=== PATIENT | female | born 1990 | race Caucasian/White ===

== ENCOUNTER 2018-05-27 16:08 | Inpatient (IN) | payer BC, OTHER ==
[2018-05-29] MEDS: LACTATED RINGERS 1,000 ML IV SCH ×3 (06:06→14:31)
[2018-05-29] MEDS ORDERED: LIDOCAINE 1% (PF) 10 MG/ML (30 ML SDV) SQ PRN (06:07)
[2018-05-29] MEDS ORDERED: OXYTOCIN 10 UNIT/ML 1 ML VIAL IM PRN (06:07)
[2018-05-29] MEDS ORDERED: TERBUTALINE 1 MG/ML VIAL SQ PRN (06:07)
[2018-05-29] MEDS ORDERED: CARBOPROST TROMETHAMINE 250 MCG/ML 1 ML AMP IM PRN (06:07)
[2018-05-29] MEDS ORDERED: METHYLERGONOVINE 0.2 MG/ML 1 ML AMP IM PRN (06:07)
[2018-05-29] MEDS ORDERED: OXYTOCIN 20 UNITS/1000 ML NS 1,000 ML IV SCH ×2 (06:15→17:00)
[2018-05-29 06:17] LABS: Basophils % (A) 0 %; Eosinophils # (A) 0.1 k/uL (0-0.7); Eosinophils % (A) 1 %; HCT 37.7 % (34.0-46.0); HGB 12.4 gm/dL (11.4-16.0); Lymphocytes # (A) 2.3 k/uL (1.0-4.8); Lymphocytes % (A) 15 %; MCH 28.6 pg (25.0-35.0); MCHC 32.9 g/dL (31.0-37.0); MCV 86.9 fL (80.0-100.0); Monocytes # (A) 0.8 k/uL (0-1.0); Monocytes % (A) 5 %; Neutrophils # (A) 12.6 k/uL (1.3-7.7); Neutrophils % (A) 78 %; Platelet Count 435 k/uL (150-450); RBC 4.33 m/uL (3.80-5.40); RDW 13.7 % (11.5-15.5)
[2018-05-29] MEDS ORDERED: ROPIVACAINE 5MG/ML 20ML VIAL ONE (08:06)
[2018-05-29] MEDS ORDERED: SODIUM CHLORIDE 0.9% 100 ML BAG ONE (08:06)
[2018-05-29] MEDS ORDERED: fentaNYL (PF) 50 MCG/ML 5 ML AMP ONE (08:06)
[2018-05-29] MEDS ORDERED: diphenhydrAMINE 50 MG/ML 1 ML VIAL IVP PRN ×2 (16:59)
[2018-05-29] MEDS ORDERED: diphenhydrAMINE 50 MG CAP PO PRN (16:59)
[2018-05-29] MEDS ORDERED: WITCH HAZEL 1 EACH MED..PAD TOPICAL PRN (16:59)
[2018-05-29] MEDS ORDERED: ZOLPIDEM 5 MG TAB PO PRN (16:59)
[2018-05-29] MEDS ORDERED: LANOLIN CREAM 5 GM TUBE TOPICAL PRN (16:59)
[2018-05-29] MEDS ORDERED: HYDROCORTISONE 2.5% RECTAL CREAM 30 GM TUBE RECTAL PRN (16:59)
[2018-05-29] MEDS ORDERED: ACETAMINOPHEN TAB 325 MG TAB PO PRN (16:59)
[2018-05-29] MEDS ORDERED: BENZOCAINE/MENTHOL SPRAY 1 GM/SPRAY AEROSOL TOPICAL PRN (16:59)
[2018-05-29] MEDS ORDERED: SIMETHICONE 80 MG CHEWABLE PO PRN (16:59)
[2018-05-29] MEDS ORDERED: HYDROcodone/APAP 5-325MG 1 EACH TAB PO PRN (16:59)
[2018-05-29] MEDS ORDERED: diphenhydrAMINE 25 MG CAP PO PRN (16:59)
--- NOTE | 2018-05-29 17:03 | P.HPOB ---
History of Present Illness H&P Date: 05/29/18 Chief Complaint: induction of labor 27-year-old presents at 40 weeks for induction of labor. Her cervix is 2 cm dilated, 90 percent effaced, and -2 station. She is kareem irregularly. heart tones 120-125 with moderate variability and reactive. Review of Systems All systems: negative Constitutional: Denies chills, Denies fever Eyes: denies blurred vision, denies pain Ears, nose, mouth and throat: Denies headache, Denies sore throat Cardiovascular: Denies chest pain, Denies shortness of breath Respiratory: Denies cough Gastrointestinal: Denies abdominal pain, Denies diarrhea, Denies nausea, Denies vomiting Genitourinary: Denies dysuria, Denies hematuria Musculoskeletal: Denies myalgias Integumentary: Denies pruritus, Denies rash Neurological: Denies numbness, Denies weakness Psychiatric: Denies anxiety, Denies depression Endocrine: Denies fatigue, Denies weight change Past Medical History Past Medical History: No Reported History Additional Past Medical History / Comment(s): Obstetric history: This is her first and she's had care with me since 12 weeks gestation. Blood type is O+, antibodies negative, rubella immune, RPR nonreactive, hepatitis B negative, HIV nonreactive, toxoplasmosis negative. Abnormal 1 hour , normal 3 hour glucose tolerance test. GBS negative. Normal anatomy ultrasound. History of Any Multi-Drug Resistant Organisms: None Reported Past Surgical History: No Surgical Hx Reported Past Anesthesia/Blood Transfusion Reactions: No Reported Reaction Past Psychological History: No Psychological Hx Reported Smoking Status: Never smoker Past Alcohol Use History: None Reported Past Drug Use History: None Reported - Past Family History Father Family Medical History: CVA/TIA, Hypertension Medications and Allergies Home Medications Medication Instructions Recorded Confirmed Type No Known Home Medications 05/29/18 05/29/18 History Allergies Allergy/AdvReac Type Severity Reaction Status Date / Time No Known Allergies Allergy Verified 05/29/18 06:06 Exam Osteopathic Statement: *. No significant issues noted on an osteopathic structural exam other than those noted in the History and Physical/Consult. Vital Signs Temp Pulse Resp BP Pulse Ox 05/29/18 06:11 96.7 F L 94 16 136/90 99 Intake and Output 05/29/18 05/29/18 05/29/18 06:59 14:59 22:59 Intake Total 1500 Balance 1500 Intake: IV 1500 Lactated Ringers 1,000 ml 1500 @ 125 mls/hr IV .Q8H [facility] Rx#:[id number] Other: Weight 90.718 kg Heart: Regular rate and rhythm Lungs: Clear to auscultation bilaterally Abdomen: Soft, nontender Extremities: Negative Homans sign Results Result Diagrams: 05/29/18 06:05 Abnormal Lab Results - Last 24 Hours (Table) 05/29/18 Range/Units 06:05 WBC 16.0 H (3.8-10.6) k/uL Neutrophils # 12.6 H (1.3-7.7) k/uL Assessment and Plan (1) Normal labor Current Visit: Yes Status: Acute Code(s): O80 - ENCOUNTER FOR FULL-TERM UNCOMPLICATED DELIVERY; Z37.9 - OUTCOME OF DELIVERY, UNSPECIFIED SNOMED Code(s ): 60337157 Plan: 1. Admit to family place 2. Induction of labor with amniotomy and Pitocin 3. Anticipate normal vaginal delivery
--- NOTE | 2018-05-29 17:05 | P.PROBDLV ---
Vaginal Delivery Note - . Vaginal Delivery Note: 27-year-old presented at 40 weeks for induction of labor. Her cervix is 2 cm dilated, 90% effaced, and -2 station. She is kareem irregularly. heart tones 100 2225 with moderate variability and reactive. Amniotomy was performed at 6:40 AM clear fluid noted. Pitocin was also started. When she began feeling very uncomfortable she did get an epidural. She slowly progressed throughout the day and her cervix was completely dilated at 1525. When she felt the urge to push she did begin pushing and delivered a viable male infant over intact perineum under epidural anesthesia at 1629. Head delivered OA, anterior shoulder delivered gentle downward guidance followed by posterior shoulder and rest of body. Nose and mouth bulb suctioned, cord clamped and cut, infant placed on mother's abdomen. Apgars 8, 9, weight 6 lbs. 6 oz. Placenta delivered spontaneously, intact with three-vessel cord at 1632. Vagina, cervix, perineum inspected. Second-degree vaginal laceration was repaired with 2-0 Vicryl. Estimated blood loss 300 mL. Mother and baby in stable condition.
[2018-05-29 18:48] VITALS: RESP 16
[2018-05-29] MEDS: IBUPROFEN 600 MG TAB PO PRN (19:17)
[2018-05-29] MEDS: SENNOSIDES-DOCUSATE SODIUM 1 EACH TAB PO SCH (19:18)
[2018-05-30] MEDS: IBUPROFEN 600 MG TAB PO PRN (08:10)
[2018-05-30] MEDS: SENNOSIDES-DOCUSATE SODIUM 1 EACH TAB PO SCH (08:11)
--- NOTE | 2018-05-30 09:15 | P.DS ---
Providers Date of admission: 05/29/18 05:58 Expected date of discharge: 05/30/18 Attending physician: Virginia Marcelino Primary care physician: Meghan Garcia - Discharge Diagnosis(es) (1) Normal labor Current Visit: Yes Status: Resolved (2) Normal vaginal delivery Current Visit: Yes Status: Acute Hospital Course: Patient presented for induction of labor. She underwent a normal vaginal delivery. Her course was uncomplicated. She'll be discharged home day #1 in stable condition to follow-up with me in 6 weeks. Plan - Discharge Summary New Discharge Prescriptions: New Ibuprofen [Motrin] 600 mg PO Q6HR PRN #30 tab PRN Reason: Mild Pain Or Fever >= 100.5 Discharge Medication List Ibuprofen [Motrin] 600 mg PO Q6HR PRN #30 tab 05/30/18 [Rx] Follow up Appointment(s)/Referral(s): Virginia Marcelino DO [Doctor of Osteopathic Medicine] - 6 Weeks Discharge Disposition: HOME SELF-CARE
[2018-05-30 16:45] VITALS: BP 130/85; PULSE 95; TEMP 98.6
== END 2018-05-30 17:45 | disposition home or self-care (01) | DRG 775 ==
LOC: 4FBP 05-29 05:58
PROVIDERS: ADMIT Obstetrics & Gynecology; ATTEND Obstetrics & Gynecology
PROC: 10E0XZZ Delivery of Products of Conception, External Approach (ICD-10-PCS; principal; 2018-05-29)
PROC: 0KQM0ZZ Repair Perineum Muscle, Open Approach (ICD-10-PCS; 2018-05-29)
PROC: 00HU33Z Insertion of Infusion Device into Spinal Canal, Percutaneous Approach (ICD-10-PCS; 2018-05-29)
PROC: 3E0R3BZ Introduction of Anesthetic Agent into Spinal Canal, Percutaneous Approach (ICD-10-PCS; 2018-05-29)
PROC: 3E033VJ Introduction of Other Hormone into Peripheral Vein, Percutaneous Approach (ICD-10-PCS; 2018-05-29)
PROC: 10907ZC Drainage of Amniotic Fluid, Therapeutic from Products of Conception, Via Natural or Artificial Opening (ICD-10-PCS; 2018-05-29)
DX: O70.1 Second degree perineal laceration during delivery (principal); Z37.0 Single live birth; Z3A.40 40 weeks gestation of pregnancy; Z82.49 Family history of ischemic heart disease and other diseases of the circulatory system; Z82.3 Family history of stroke
CPT/HCPCS: 85025

== ENCOUNTER → 2019-04-29 | Outpatient (CLI) | payer BC ==
--- NOTE | 2019-04-29 17:32 | CT ---
EXAMINATION TYPE: CT sinus wo con DATE OF EXAM: 04/29/2019 COMPARISON: None HISTORY: Difficulty breathing out of right nostril CT DLP: 587.5 mGycm CONTRAST: None The paranasal sinuses are examined in the axial plane at 2 mm thick sections. Reconstructed images i n the coronal plane were obtained. There is dental amalgam scatter artifact Retention cysts are within the right maxillary sinus. Small retention cysts within the left maxillary sinus. Mild mucosal thickening is through ethmoid air cells. Right sphenoid sinus contains mucosal thickening The frontal sinuses are clear. The septum is evaluated. There is septal deviation to the right. Nasal passages are clear. The ostiomeatal units are patent. IMPRESSIONS: 1. Post thickening within maxillary sinuses and scattered ethmoid air cells. 2. Right septal deviation
== END | disposition home or self-care (01) ==
LOC: RADCTMAIN 13:18
PROVIDERS: ATTEND Otolaryngology
DX: J34.89 Other specified disorders of nose and nasal sinuses (principal); J34.2 Deviated nasal septum; J32.9 Chronic sinusitis, unspecified
CPT/HCPCS: 70486

== ENCOUNTER 2019-06-16 06:50 | Day surgery (SDC) | payer BC ==
[2019-06-10 15:25] VITALS: BMI 37.0
[~2019-06-16 06:50] MED LIST: DEXAMETHASONE SOD PHOSPHATE 10 MG/ML 1 ML VIAL IV ONE; DEXAMETHASONE SOD PHOSPHATE 4 MG/ML 1 ML VIAL IV ONE; FAMOTIDINE 20 MG/2 ML VIAL IV ONE; HYDROmorphone 0.5 MG/0.5 ML SYRINGE IVP PRN; LACTATED RINGERS 1,000 ML IV SCH; LIDOCAINE 1% 20 ML VIAL (10MG/ML) FOR IV START INTRADERMA PRN; MIDAZOLAM 2 MG/2 ML VIAL IV PRN; ONDANSETRON 4 MG/2 ML VIAL IVP ONE; SCOPOLAMINE 1.5MG/72HR PATCH TRANSDERM ONE
[2019-06-16 07:20] VITALS: RESP 16
[2019-06-16] MEDS: OXYMETAZOLINE 0.05% NASL SPRAY 1 SPRAY BOTTLE NASAL ONE ×5 (07:22→07:39)
[2019-06-16] MEDS ORDERED: fentaNYL (PF) 50 MCG/ML 2 ML AMP ONE (08:11)
[2019-06-16] MEDS ORDERED: GLYCOPYRROLATE 0.2 MG/ML 2 ML VIAL ONE (08:11)
[2019-06-16] MEDS ORDERED: PROPOFOL 10 MG/ML 20 ML VIAL IV ONE (08:11)
[2019-06-16] MEDS ORDERED: ROCURONIUM BROMIDE 10 MG/ML 10 ML VIAL IV ONE (08:11)
[2019-06-16] MEDS ORDERED: MIDAZOLAM 2 MG/2 ML VIAL ONE (08:11)
[2019-06-16] MEDS ORDERED: LIDOCAINE 1% INJ 10MG/ML (20 ML MDV) ONE (08:11)
[2019-06-16] MEDS ORDERED: DEXAMETHASONE SOD PHOS (MDV) 100 MG/10 ML VIAL ONE (08:11)
[2019-06-16] MEDS ORDERED: NEOSTIGMINE 1 MG/ML 10 ML VIAL ONE (08:11)
[2019-06-16] MEDS ORDERED: SUCCINYLCHOLINE CHLORIDE 100 MG/5 ML SYR IV ONE (08:11)
[2019-06-16] MEDS ORDERED: LIDOCAINE 1%-EPI 1:100,000 20 ML VIAL SUBMUCOSAL ONE ×2 (08:45)
[2019-06-16] MEDS ORDERED: BACITRACIN OINT 1 EACH PACKET TOPICAL ONE (08:45)
--- NOTE | 2019-06-16 09:28 | P.OP ---
Date of Procedure: 06/16/19 Preoperative Diagnosis: Deviated nasal septum Inferior turbinate hypertrophy Chronic sinusitis Postoperative Diagnosis: Same Procedure(s) Performed: Septoplasty Outfractured and submucous resection inferior turbinates Bilateral endoscopic sinus surgery including bilateral maxillary antrostomy with removal of tissue from the maxillary sinuses, right anterior and posterior ethmoidectomy, right sphenoidotomy including balloon sinus plasty Anesthesia: STEPHANIE Surgeon: Jon Preciado Estimated Blood Loss (ml): 10 Pathology: other (Nasal septal bone and cartilage and sinus contents) Condition: stable Disposition: PACU Indications for Procedure: This 28-year-old white female whose had difficulties with chronic and recurrent sinusitis as well as chronic nasal airway obstruction especially on the right Operative Findings: Septum deviated to the right, inferior turbinate hypertrophy bilateral, bilateral maxillary sinus polyps and mucosal thickening throughout the anterior posterior ethmoid sinuses on the right as well as mild inflammation of the right sphenoid sinus Description of Procedure: The patient was brought in the operative suite and placed in a supine position. Patient underwent induction of general anesthesia with oral endotracheal intubation without difficulty. The patient was prepped and draped in usual aseptic fashion. The orbits in the operating field for monitoring times the case and the computed tomography scan was on the computer screen for review throughout the case also. 1% lidocaine with 1 100,000 epinephrine was infused submucosally and bilateral nasal septum other partial submucous resection inferior turbinates with Coblation wand ablating a portion of the submucosal soft tissue and then the inferior turbinates were outfractured with [place] elevator. The left hemitransfixion incision was made with the mucoperichondrial mucoperiosteal flap on left elevated. Bony cartilaginous junction was disarticulated and the mucoperiosteal flap on the right was elevated. Bony nasal septal deformities were removed Estefani forceps. An inferior cartilaginous strip was removed leaving a full 1.5 cm caudal strut. Checking intranasally this corrected nasoseptal deformities and the hemitransfixion incision was closed with a running 4-0 chromic suture. Full 0 endoscopic examination is performed bilaterally. Beginning on the left the middle turbinate was medialized with the [place] elevator. The maxillary ostium was located with a ballpoint probe and infundibulotomy was performed followed by uncinectomy. The maxillary antrostomy was enlarged at the expense of the anterior and posterior fontanelle taking care anteriorly not to injure the lacrimal bone. The maxillary sinus was explored with 30 and 70 endoscope and small polyps were removed from the sinus with giraffe forceps. The ethmoid bulla was overhanging and therefore the anterior medial and inferior collins of the ethmoid bulla were removed as performing a partial anterior ethmoidectomy. Attention was then turned to the right where the procedures were followed as they were in the left including medialization middle turbinate infundibulotomy uncinectomy max antrostomy with removal of tissue from exercise is but in add ition anterior and posterior ethmoidectomy was performed with microdebrider from anterior to posterior. The sphenoid ostium was also enlarged with balloon sinus plasty entellus light guided system and the sinus was explored also endoscopically. Once this was completed standard nasal pore nasal dressing was placed and middle meatus direct visualization. Bilateral Jenkins airway splints coated bacitracin ointment were placed bilaterally and sutured trans-septally with a 4-0 Vicryl suture. The patient was suctioned in oral gastric fashion. The patient was allowed to emerge from general anesthesia having tolerated procedure well was extubated in the operating suite and transferred postoperative recovery area in satisfactory condition.
[2019-06-16 09:43] VITALS: TEMP 96.8
[2019-06-16 10:44] VITALS: BP 139/84; PULSE 71
== END 2019-06-16 10:58 | disposition home or self-care (01) ==
LOC: OR 06:50
PROVIDERS: ATTEND Otolaryngology
DX: J34.2 Deviated nasal septum (principal); J32.9 Chronic sinusitis, unspecified; J34.3 Hypertrophy of nasal turbinates; J34.89 Other specified disorders of nose and nasal sinuses; F32.9 Major depressive disorder, single episode, unspecified; J30.81 Allergic rhinitis due to animal (cat) (dog) hair and dander; Z79.899 Other long term (current) drug therapy; Z83.3 Family history of diabetes mellitus; Z82.61 Family history of arthritis; Z83.42 Family history of familial hypercholesterolemia
CPT/HCPCS: 30520; 30140; 31267; 31257; 81025; 88305; 88300; C1726; J2250; J1100 ×2; J2710; J2405; J0690; J2001; J3010; J0330; J2704